=== PATIENT | female | born 1940 | race Caucasian/White ===

== ENCOUNTER 2016-09-07 05:56 | Inpatient (IN) | payer MEDICARE, BC ==
[2016-09-07 06:59] LABS: ALT 24 U/L (9-52); AST 22 U/L (14-36); Alkaline Phosphatase 70 U/L (38-126); Anion Gap 10 mmol/L; Blood Urea Nitrogen 13 mg/dL (7-17); Calcium 8.9 mg/dL (8.4-10.2); Carbon Dioxide 23 mmol/L (22-30); Chloride 106 mmol/L (98-107); Glucose 102 mg/dL (74-99); Non-African American GFR(MDRD) >60 (>60 ml/min/1.73 sqM); Sodium 139 mmol/L (137-145); Total Bilirubin 0.3 mg/dL (0.2-1.3); Total Protein 6.5 g/dL (6.3-8.2)
[2016-09-07 07:13] LABS: Anisocytosis Slight; Basophils # (A) 0.1 k/uL (0-0.2); Basophils % (A) 1 %; CH 24.6; CHCM 28.6; Eosinophils # (A) 0.2 k/uL (0-0.7); Eosinophils % (A) 2 %; HDW 4.74; Hypochromasia Marked; Luc % (Auto) 3; Lymphocytes # (A) 1.3 k/uL (1.0-4.8); Lymphocytes % (A) 19 %; MCH 24.9 pg (25.0-35.0); MCHC 28.7 g/dL (31.0-37.0); MCV 86.7 fL (80.0-100.0); Mean Platelet Volume 7.4; Monocytes # (A) 0.6 k/uL (0-1.0); Monocytes % (A) 8 %; Neutrophils # (A) 4.7 k/uL (1.3-7.7); Neutrophils % (A) 67 %; Poikilocytosis Marked; RBC 2.28 m/uL (3.80-5.40); RDW 18.7 % (11.5-15.5); WBC (Perox) 6.51
[2016-09-07 07:20] LABS: HCT 19.8 % (34.0-46.0); HGB 5.7 gm/dL (11.4-16.0)
[2016-09-07] MEDS ORDERED: SODIUM CHLORIDE 0.9% 1,000 ML IV ONE (08:41)
--- NOTE | 2016-09-07 08:44 | ED ---
General Adult HPI - General Chief complaint: Recheck/Abnormal Lab/Rx Stated complaint: Abnormal labs-Dr sent Time Seen by Provider: 09/07/16 07:36 Source: patient, RN notes reviewed, old records reviewed Mode of arrival: wheelchair Limitations: no limitations - History of Present Illness Initial comments: This is a 75-year-old female ER for evaluation. This patient presents for evaluation of weakness. Patient had outpatient lab work showing anemia, coming in for further evaluation. Patient states she has had anemia with transfusion in the past unknown what caused patient patient that she does take iron pills does have dark stools. No blood in her stool no nausea or vomiting. Patient denies any pain. She has been feeling weak lightheaded and dizzy for quite some time - Related Data Home Medications Medication Instructions Recorded Confirmed Ascorbic Acid [Vitamin C] 500 mg PO DAILY 12/21/15 09/07/16 Cholecalciferol [Vitamin D3] 5,000 unit PO DAILY 12/21/15 09/07/16 FLUoxetine HCL [PROzac] 20 mg PO DAILY 12/21/15 09/07/16 Ferrous Sulfate [Feosol] 325 mg PO DAILY 12/21/15 09/07/16 Fluticasone Nasal [place] [Flonase 1 spray EA NOSTRIL DAILY PRN 12/21/15 09/07/16 Nasal [place]] Isosorbide Mononitrate ER [Imdur] 60 mg PO DAILY 12/21/15 09/07/16 Multivitamins, Thera [Multivitamin] 1 tab PO DAILY 12/21/15 09/07/16 Omeprazole [PriLOSEC] 20 mg PO BID PRN 12/21/15 09/07/16 clonazePAM [Clonazepam] 2 mg PO TID PRN 12/21/15 09/07/16 Naproxen Sodium [Aleve] 220 mg PO BID PRN 12/22/15 09/07/16 Allergies Allergy/AdvReac Type Severity Reaction Status Date / Time iodine AdvReac Severe Nausea & Verified 09/07/16 07:49 Vomiting shrimp AdvReac Severe Nausea & Verified 09/07/16 07:49 Vomiting Penicillins AdvReac Unknown Uncontrollable Verified 09/07/16 07:49 Shaking Review of Systems ROS Statement: Those systems with pertinent positive or pertinent negative responses have been documented in the HPI. ROS Other: All systems not noted in ROS Statement are negative. Past Medical History Past Medical History: Cancer, GERD/Reflux, Osteoarthritis (OA), Skin Disorder Additional Past Medical History / Comment(s): HEART MURMUR, SINUS PROBLEMS- STATES EASILY CONGESTED, HIATAL HERNIA, HX OF SKIN CANCER, ANEMIA. TEETH IMPLANTS AUGUST-SEPTEMBER 2015 AND HAD CELLULITIS OF NECK AND CHIN-STATES INFECTION NOW IN THE BONE. History of Any Multi-Drug Resistant Organisms: None Reported Past Surgical History: Back Surgery, Tonsillectomy Past Anesthesia/Blood Transfusion Reactions: No Reported Reaction Additional Past Anesthesia/Blood Transfusion Reaction / Comment(s): HX OF BLOOD TRANSFUSIONS. Past Psychological History: Anxiety, Panic Disorder Smoking Status: Former smoker Past Alcohol Use History: None Reported Additional Past Alcohol Use History / Comment(s): QUIT SMOKING 40 YEARS AGO ( 1975). STARTED SMOKING AGE 24 (1963) Past Drug Use History: None Reported - Past Family History Mother Family Medical History: Deep Vein Thrombosis (DVT) Father Family Medical History: Cancer Additional Family Medical History / Comment(s): LUNG CANCER Brother(s) Family Medical History: Cancer Additional Family Medical History / Comment(s): LEUKEMIA General Exam Limitations: no limitations General appearance: alert, in no apparent distress Head exam: Present: atraumatic, normocephalic, normal inspection Eye exam: Present: normal appearance, PERRL, EOMI. Absent: scleral icterus, conjunctival injection, periorbital swelling ENT exam: Present: normal exam, mucous membranes moist Neck exam: Present: normal inspection. Absent: tenderness, meningismus, lymphadenopathy Respiratory exam: Present: normal lung sounds bilaterally. Absent: respiratory distress, wheezes, rales, rhonchi, stridor Cardiovascular Exam: Present: regular rate, normal rhythm, normal heart sounds. Absent: systolic murmur, diastolic murmur, rubs, gallop, clicks GI/Abdominal exam: Present: soft, normal bowel sounds. Absent: distended, tenderness, guarding, rebound, rigid Extremities exam: Present: normal inspection, full ROM, normal capillary refill. Absent: tenderness, pedal edema, joint swelling, calf tenderness Back exam: Present: normal inspection Neurological exam: Present: alert, oriented X3, CN II-XII intact Psychiatric exam: Present: normal affect, normal mood Skin exam: Present: warm, dry, intact, normal color. Absent: rash Course Vital Signs 09/07/16 09/07/16 06:01 07:27 Temperature 97.9 F 96.7 F L Pulse Rate 89 86 Respiratory 18 16 Rate Blood Pressure 129/52 155/70 O2 Sat by Pulse 99 98 Oximetry - Reevaluation(s) Reevaluation #1: 09/07/16 08:44 Patient states she does feel weak, dizzy, lightheaded EKG Findings - EKG Comments: EKG Findings:: EKG shows sinus rhythm rate of 88, MO 140, QRS 82, QTc 464 Medical Decision Making - Medical Decision Making 75 female ER for evaluation. The patient is a for evaluation of anemia. Anemia of chronic disease compounded by acute blood loss through GI bleed. Patient with dark stools, will admit for GI evaluation, transfusion and monitoring of hemoglobin - Lab Data Result diagrams: 09/07/16 06:30 09/07/16 06:30 Lab Results 09/07/16 09/07/16 09/07/16 Range/Units 06:30 06:30 06:30 WBC 7.0 (3.8-10.6) k/uL RBC 2.28 L (3.80-5.40) m/uL Hgb 5.7 L* (11.4-16.0) gm/dL Hct 19.8 L* (34.0-46.0) % MCV 86.7 (80.0-100.0) fL MCH 24.9 L (25.0-35.0) pg MCHC 28.7 L (31.0-37.0) g/dL RDW 18.7 H (11.5-15.5) % Plt Count 225 (150-450) k/uL Neutrophils % 67 % Lymphocytes % 19 % Monocytes % 8 % Eosinophils % 2 % Basophils % 1 % Neutrophils # 4.7 (1.3-7.7) k/uL Lymphocytes # 1.3 (1.0-4.8) k/uL Monocytes # 0.6 (0-1.0) k/uL Eosinophils # 0.2 (0-0.7) k/uL Basophils # 0.1 (0-0.2) k/uL Hypochromasia Marked Poikilocytosis Marked Anisocytosis Slight Sodium 139 (137-145) mmol/L Potassium 4.0 (3.5-5.1) mmol/L Chloride 106 (98-107) mmol/L Carbon Dioxide 23 (22-30) mmol/L Anion Gap 10 mmol/L BUN 13 (7-17) mg/dL Creatinine 0.71 (0.52-1.04) mg/dL Est GFR (MDRD) Af Amer >60 (>60 ml/min/1.73 sqM) Est GFR (MDRD) Non-Af >60 (>60 ml/min/1.73 sqM) Glucose 102 H (74-99) mg/dL Calcium 8.9 (8.4-10.2) mg/dL Total Bilirubin 0.3 (0.2-1.3) mg/dL AST 22 (14-36) U/L ALT 24 (9-52) U/L Alkaline Phosphatase 70 (38-126) U/L Total Protein 6.5 (6.3-8.2) g/dL Albumin 3.7 (3.5-5.0) g/dL Blood Type O Positive Blood Type Recheck No Antibody Screen NEGATIVE Spec Expiration Date 09/10/2016 - 233 Disposition Clinical Impression: Anemia, GI bleed Disposition: ADMITTED IP TO THIS [facility] Condition: Fair Referrals: Panfilo Vizcaino MD [Primary Care Provider] - 1-2 days
[2016-09-07 12:31] LABS: % Iron Saturation 3.2 % (20-50)
[2016-09-07] MEDS ORDERED: PEG 3350-NA SULF,BICARB,CL/KCL 4,000 ML BOTTLE PO ONE (15:00)
[2016-09-07] MEDS ORDERED: NON-FORMULARY DRUG (Omeprazole 20 MG) PO PRN (18:23)
[2016-09-07 19:28] LABS: Anisocytosis Slight; Basophils % (A) 1 %; CH 26.7; Eosinophils # (A) 0.2 k/uL (0-0.7); Eosinophils % (A) 3 %; HCT 26.9 % (34.0-46.0); HDW 5.26; Hypochromasia Marked; Luc # (Auto) 0.17; Luc % (Auto) 3; Lymphocytes % (A) 15 %; MCH 27.9 pg (25.0-35.0); MCHC 31.2 g/dL (31.0-37.0); MCV 89.6 fL (80.0-100.0); Mean Platelet Volume 7.7; Monocytes # (A) 0.6 k/uL (0-1.0); Monocytes % (A) 9 %; Neutrophils # (A) 4.6 k/uL (1.3-7.7); Neutrophils % (A) 71 %; Poikilocytosis Marked; RDW 17.5 % (11.5-15.5); WBC 6.4 k/uL (3.8-10.6); WBC (Perox) 6.84
--- NOTE | 2016-09-07 19:30 | HP ---
DATE OF ADMISSION: 09/07/2016 PRESENTING COMPLAINT: Weak and tired. HISTORY OF PRESENTING COMPLAINT: A very pleasant 75-year-old patient of Dr. Vizcaino, presented extremely weak, tired, and run down for days. Patient has a long-standing history of anemia, has had multiple EGDs colonoscopy in the past. All have been unremarkable. The patient's chronic stable medical conditions include GERD, osteoarthritis, hiatal hernia, anxiety. Patient does take iron and always gets dark stools. Admitted at this time with hemoglobin down to 5.7 and was ordered 2 units of blood. Denies any abdominal pain or weight loss. REVIEW OF SYSTEMS: CONSTITUTIONAL: Weak, tired. HEENT: None. RESPIRATORY: None. CARDIOVASCULAR: None. GASTROINTESTINAL: Heartburn. GENITOURINARY: None. MUSCULOSKELETAL: Pain in the joints. DERMATOLOGIC: None. HEMATOLOGIC: None. LYMPHATIC: None. PSYCHIATRY: None. NEUROLOGICAL: None. Past history of GERD, osteoarthritis, hiatal hernia, jaw osteomyelitis, anxiety. PAST SURGICAL HISTORY: Back surgery, tonsillectomy, bilateral cataract removal and skin cancer removed, back surgery x3. SOCIAL HISTORY: Patient smoked about 11 years; stopped in 1975, lives with his spouse. Family history of DVT, rheumatoid arthritis, lung cancer. HOME MEDICATIONS: 1. Clonazepam 2 mg p.o. t.i.d. p.r.n. 2. Prilosec 20 mg p.o. b.i.d. p.r.n. 3. Aleve 200 mg p.o. b.i.d. 4. Multivitamin 1 tablet p.o. daily. 5. Imdur ER 60 mg p.o. daily. 6. Nasal Flonase spray each nostril daily p.r.n. 7. Iron 325 mg p.o. daily. 8. Prozac 20 mg p.o. daily. 9. Vitamin D3 5000 units p.o. daily. 10. Vitamin C 500 mg p.o. daily. ALLERGIES: IODINE, SHRIMP, PENICILLIN. On examination, temperature 98.1, pulse 85, respirations 16, blood pressure 115/84, pulse ox 96% on room air. GENERAL APPEARANCE: Well built, BMI of 33. Lying in bed, tired-appearing. EYES: Pupils equal. Conjunctivae pale. HEENT: Oral cavity normal. NECK: JVD not raised. Mass not palpable. RESPIRATORY: Effort normal. Lungs are clear. CARDIOVASCULAR: First and second sounds normal. No edema. ABDOMEN: Soft, nontender. Liver and spleen not palpable. LYMPHATIC: No lymph nodes palpable in neck or axillae. PSYCHIATRY: Alert and oriented x3. Mood and affect normal. NEUROLOGICAL: Pupils equal. Cranial nerves grossly intact. Power and sensation grossly intact. INVESTIGATIONS: White count 7, hemoglobin 5.7, MCV is normal. There is some ( ) and polycytosis. BUN and creatinine are normal. Iron is low at 14. Ferritin is down to 12. ASSESSMENT: 1. Acute and chronic severe symptomatic normocytic anemia with iron deficiency picture in a patient who is having dark stools, but has been on iron, has had multiple colonoscopies and esophagogastroduodenoscopies in the past. 2. Gastroesophageal reflux disease. 3. Primary osteoarthritis in multiple joints, bilateral. 4. Obesity; body mass index of 33.8. 5. Hiatal hernia. PLAN: The patient was transfused 2 units of blood. GI was consulted. They are going proceed to EGD, colonoscopy tomorrow. Also get hematological consult for further workup, probably as an outpatient. Care was discussed with the patient. Questions were answered.
[2016-09-07 19:31] LABS: HGB 8.4 gm/dL (11.4-16.0)
[2016-09-07] MEDS: LACTATED RINGERS 1,000 ML IV SCH (21:34)
[2016-09-07] MEDS: PANTOPRAZOLE 40 MG/10 ML VIAL IVP SCH (21:35)
[2016-09-07] MEDS: FLUoxetine HCL 20 MG CAP PO SCH (21:35)
[2016-09-07] MEDS: ISOSORBIDE MONONITRATE ER 60 MG TAB.ER.24H PO SCH (21:35)
--- NOTE | 2016-09-08 07:39 | P.CONS ---
History of Present Illness - Reason for Consult Consult date: 09/08/16 anemia Requesting physician: Javier Harding - History of Present Illness 75-year-old female patient of Dr. Sabas Vizcaino with a long-standing history of anemia thought to be attributed to heavy menses in the past with multiple endoscopic evaluations; last endoscopic evaluation has been several years, hiatal hernia, anxiety, and obesity. Patient presents with generalized weakness , lightheadedness, dizziness. Admission hemoglobin 5.7. MCV 86. Platelet 225. BUN 13. Creatinine 0.7. Iron 14. TIBC 432. Iron saturation 3.2%. Ferritin 12. She received 2 units of blood hemoglobin 8.4. Reports dark colored stools but takes iron supplementation. Denies gross hematemesis or hematochezia. No weight loss or abdominal pain. Upon review of past medical records hemoglobin was in the 10 range December 2015. Denies excessive usage of NSAIDs, aspirin or other antiplatelet medications. No alcohol. Review of Systems Constitutional: Denies fever, chills, sweats, weight gain, or loss. HEENT: Negative for migraines, blurred vision or loss, earaches, drainage, tinnitus, oral mucosal lesions, dysphagia, or odynophagia. CARDIAC: Negative for chest pain, arrhythmias, or palpitation. RESPIRATORY: Negative for shortness of breath, hemoptysis, cough, or sputum production. GI: See HPI for pertinent findings. : Negative for hematuria, urgency, frequency, polyuria, or dysuria. GYNc: Negative vaginal discharge. MUSCULOSKELETAL: Negative for muscle aches, swelling, arthritis, and arthralgias. NEUROLOGIC: Negative for stroke or TIA. ENDOCRINE: Negative for thyroid problems. SKIN: Negative for rash or itching. PSYCHIATRIC: History of anxiety All systems: negative (See HPI) Past Medical History Past Medical History: Cancer, GERD/Reflux, GI Bleed, Osteoarthritis (OA), Skin Disorder Additional Past Medical History / Comment(s): ANEMIA-CAUSE UNKNOWN PER PT, HEART MURMUR, SINUS PROBLEMS-STATES EASILY CONGESTED, HIATAL HERNIA, SKIN CANCER , TEETH IMPLANTS AUGUST-SEPTEMBER 2015 AND HAD CELLULITIS OF NECK AND CHIN-OSTEOMYLITIS , BALANCE PROBLEMS, RECENT CONSTIPATION AND PT STATES HAS HAD ALITTLE BLOOD IN STOOL. History of Any Multi-Drug Resistant Organisms: None Reported Past Surgical History: Back Surgery, Tonsillectomy Additional Past Surgical History / Comment(s): EGDS/COLONOSCOPIES, BILATERAL CATARACT REMOVAL WITH LENS, SKIN CANCER REMOVAL, BACK SURGERY X3, 12/22/15 PICC LINE SINCE REMOVED. Past Anesthesia/Blood Transfusion Reactions: No Reported Reaction Additional Past Anesthesia/Blood Transfusion Reaction / Comm: HX OF BLOOD TRANSFUSIONS. Past Psychological History: Anxiety, Panic Disorder Additional Psychological History / Comment(s): PT RESIDES WITH HER SPOUSE, THEIR SON AND HIS 3 TEENAGE CHILDREN. SHE LATELY HAS BEEN USING A WALKER. SHE DRIVES. Smoking Status: Former smoker Past Alcohol Use History: None Reported Additional Past Alcohol Use History / Comment(s): QUIT SMOKING 40 YEARS AGO ( 1975). STARTED SMOKING AGE 24 (1963) Past Drug Use History: None Reported - Past Family History Mother Family Medical History: Deep Vein Thrombosis (DVT), Rheumatoid Arthritis (RA) Father Family Medical History: Cancer Additional Family Medical History / Comment(s): LUNG CANCER Brother(s) Family Medical History: Cancer Additional Family Medical History / Comment(s): LEUKEMIA Medications and Allergies Home Medications Medication Instructions Recorded Confirmed Type Ascorbic Acid [Vitamin C] 500 mg PO DAILY 12/21/15 09/07/16 History Cholecalciferol [Vitamin D3] 5,000 unit PO DAILY 12/21/15 09/07/16 History FLUoxetine HCL [PROzac] 20 mg PO DAILY 12/21/15 09/07/16 History Ferrous Sulfate [Feosol] 325 mg PO DAILY 12/21/15 09/07/16 History Fluticasone Nasal [place] [Flonase 1 spray EA NOSTRIL DAILY PRN 12/21/15 09/07/16 History Nasal [place]] Isosorbide Mononitrate ER [Imdur] 60 mg PO DAILY 12/21/15 09/07/16 History Multivitamins, Thera [Multivitamin] 1 tab PO DAILY 12/21/15 09/07/16 History Omeprazole [PriLOSEC] 20 mg PO BID PRN 12/21/15 09/07/16 History clonazePAM [Clonazepam] 2 mg PO TID PRN 12/21/15 09/07/16 History Naproxen Sodium [Aleve] 220 mg PO BID PRN 12/22/15 09/07/16 History Allergies Allergy/AdvReac Type Severity Reaction Status Date / Time iodine AdvReac Severe Nausea & Verified 09/07/16 07:49 Vomiting shrimp AdvReac Severe Nausea & Verified 09/07/16 07:49 Vomiting Penicillins AdvReac Unknown Uncontrollable Verified 09/07/16 07:49 Shaking Physical Exam Vitals: Vital Signs Temp Pulse Pulse Resp BP BP Pulse Ox 09/07/16 23:00 98.2 F 92 19 127/54 94 L 09/07/16 20:27 89 152/76 95 09/07/16 16:00 16 09/07/16 15:35 98.1 F 85 16 158/84 09/07/16 15:00 98.8 F 82 16 163/85 96 09/07/16 12:56 97.9 F 82 18 134/67 09/07/16 12:26 97.9 F 90 16 158/88 09/07/16 12:16 98.1 F 95 16 164/89 09/07/16 12:03 96.8 F L 83 16 134/65 09/07/16 11:18 96.2 F L 84 16 98/54 99 09/07/16 10:28 96.7 F L 80 16 153/67 96 09/07/16 09:50 96.7 F L 80 16 153/67 96 09/07/16 09:20 97.8 F 79 17 159/70 98 09/07/16 09:10 97.7 F 82 18 137/62 98 09/07/16 08:47 87 18 146/63 98 Intake and Output 09/07/16 09/08/16 09/08/16 22:59 06:59 14:59 Intake Total 310 Balance 310 Intake: Blood Product 310 Rc As-1 Unit 310 [id number] Other: # Voids 2 1 General appearance: The patient is alert, oriented, in no acute distress. HET: Head is normocephalic and atraumatic. Pupils are equal and reactive. Oropharynx is clear without lesions. Neck: Supple without lymphadenopathy. Trachea midline. Heart: S1 S2. Regular rate and rhythm. Lungs: No crackles or wheezes are heard. Abdomen: Soft, nontender, nondistended with bowel sounds. No peritoneal signs. No palpable organomegaly or masses. Extremities: Normal skin color and turgor. No cyanosis, rash, ulceration, clubbing, or edema. Radial and pedal pulses are 2/4 bilaterally. Neurological: No focal deficits. Strength and sensation are grossly intact. Results CBC & Chem 7: 09/08/16 07:55 09/07/16 06:30 Labs: Abnormal Lab Results - Last 24 Hours (Table) 09/07/16 09/07/16 09/07/16 Range/Units 06:30 06:30 18:42 RBC 3.00 L (3.80-5.40) m/uL Hgb 8.4 L D (11.4-16.0) gm/dL Hct 26.9 L (34.0-46.0) % RDW 17.5 H (11.5-15.5) % Iron 14 L (37-170) ug/dL % Saturation 3.2 L (20-50) % Crossmatch See Detail Assessment and Plan (1) Symptomatic anemia Narrative/Plan: Possible GI bleed possible component of acute blood loss. History of long- standing anemia. Status: Acute (2) Iron deficiency anemia Status: Acute Plan: 1. EGD colonoscopy evaluation. 2. Hematology consultation. 3. No aspirin and NSAIDs. GI prophylaxis Protonix 40 mg twice daily. 4. Hemoccult stool testing requested. The armature coil winder has discussed the risks, benefits and alternative therapies for the above-mentioned procedure and for both sedation/analgesia as well as necessary blood product administration, if indicated, as they pertain to this patient. The patient has indicated understanding and acceptance of the risks and procedures discussed. Thank you for this kind referral and the opportunity to participate in the care of your patient. This consultation was discussed with Dr. Steel. The impression and plan of care have been directed as dictated.
[2016-09-08 08:21] LABS: Anisocytosis Slight; Basophils % (A) 0 %; CH 26.6; CHCM 30.5; Eosinophils # (A) 0.1 k/uL (0-0.7); Eosinophils % (A) 2 %; HCT 24.8 % (34.0-46.0); HDW 5.52; HGB 7.7 gm/dL (11.4-16.0); Hypochromasia Marked; Luc # (Auto) 0.14; Luc % (Auto) 2; Lymphocytes # (A) 0.8 k/uL (1.0-4.8); Lymphocytes % (A) 13 %; MCH 27.1 pg (25.0-35.0); MCHC 30.9 g/dL (31.0-37.0); MCV 87.9 fL (80.0-100.0); Mean Platelet Volume 7.5; Monocytes # (A) 0.6 k/uL (0-1.0); Monocytes % (A) 8 %; Neutrophils # (A) 4.9 k/uL (1.3-7.7); Neutrophils % (A) 75 %; Poikilocytosis Marked; RBC 2.82 m/uL (3.80-5.40); RDW 16.9 % (11.5-15.5); WBC 6.6 k/uL (3.8-10.6); WBC (Perox) 6.18
[2016-09-08] MEDS ORDERED: ACETAMINOPHEN TAB 325 MG TAB ONE (08:27)
[2016-09-08] MEDS: ISOSORBIDE MONONITRATE ER 60 MG TAB.ER.24H PO SCH (08:28)
[2016-09-08] MEDS: PANTOPRAZOLE 40 MG/10 ML VIAL IVP SCH ×2 (08:28→21:21)
[2016-09-08] MEDS: ACETAMINOPHEN TAB 325 MG TAB PO PRN (08:28)
[2016-09-08] MEDS: clonazePAM 1 MG TAB PO PRN (08:28)
[2016-09-08] MEDS: FLUoxetine HCL 20 MG CAP PO SCH (08:28)
--- NOTE | 2016-09-08 15:17 | P.CONS ---
History of Present Illness - Reason for Consult Consult date: 09/08/16 anemia Requesting physician: Javier Harding - Chief Complaint abnormal lab on routine blood work - History of Present Illness Ms. Manriquez is a pleasant female pt of Dr. Morrell who states she was contacted at home and instructed to come to the hospital for severe anemia, Hgb was 5.7 on admit, she has had 2 units of PRBCs with an appropriate increase in Hgb. Pt states taking oral iron, 1 tab daily, denies bleeding, she states frequent colonoscopies but was not able to say why she and her had them so frequently-annually for quite some time then every 3 years-she could not say when her last one was but it was prior to moving to this area, it is unclear how ling she has been in the area just that she is staying with her son in [place]. She denies any overt bleeding. Review of Systems All systems: negative Constitutional: Reports as per HPI Past Medical History Past Medical History: Cancer, GERD/Reflux, GI Bleed, Osteoarthritis (OA), Skin Disorder Additional Past Medical History / Comment(s): ANEMIA-CAUSE UNKNOWN PER PT, HEART MURMUR, SINUS PROBLEMS-STATES EASILY CONGESTED, HIATAL HERNIA, SKIN CANCER , TEETH IMPLANTS AUGUST-SEPTEMBER 2015 AND HAD CELLULITIS OF NECK AND CHIN-OSTEOMYLITIS , BALANCE PROBLEMS, RECENT CONSTIPATION AND PT STATES HAS HAD ALITTLE BLOOD IN STOOL. History of Any Multi-Drug Resistant Organisms: None Reported Past Surgical History: Back Surgery, Tonsillectomy Additional Past Surgical History / Comment(s): EGDS/COLONOSCOPIES, BILATERAL CATARACT REMOVAL WITH LENS, SKIN CANCER REMOVAL, BACK SURGERY X3, 12/22/15 PICC LINE SINCE REMOVED. Past Anesthesia/Blood Transfusion Reactions: No Reported Reaction Additional Past Anesthesia/Blood Transfusion Reaction / Comm: HX OF BLOOD TRANSFUSIONS. Past Psychological History: Anxiety, Panic Disorder Additional Psychological History / Comment(s): PT RESIDES WITH HER SPOUSE, THEIR SON AND HIS 3 TEENAGE CHILDREN. SHE LATELY HAS BEEN USING A WALKER. SHE DRIVES. Smoking Status: Former smoker Past Alcohol Use History: None Reported Additional Past Alcohol Use History / Comment(s): QUIT SMOKING 40 YEARS AGO ( 1975). STARTED SMOKING AGE 24 (1963) Past Drug Use History: None Reported - Past Family History Mother Family Medical History: Deep Vein Thrombosis (DVT), Rheumatoid Arthritis (RA) Father Family Medical History: Cancer Additional Family Medical History / Comment(s): LUNG CANCER Brother(s) Family Medical History: Cancer Additional Family Medical History / Comment(s): LEUKEMIA Medications and Allergies Home Medications Medication Instructions Recorded Confirmed Type Ascorbic Acid [Vitamin C] 500 mg PO DAILY 12/21/15 09/07/16 History Cholecalciferol [Vitamin D3] 5,000 unit PO DAILY 12/21/15 09/07/16 History FLUoxetine HCL [PROzac] 20 mg PO DAILY 12/21/15 09/07/16 History Ferrous Sulfate [Feosol] 325 mg PO DAILY 12/21/15 09/07/16 History Fluticasone Nasal [place] [Flonase 1 spray EA NOSTRIL DAILY PRN 12/21/15 09/07/16 History Nasal [place]] Isosorbide Mononitrate ER [Imdur] 60 mg PO DAILY 12/21/15 09/07/16 History Multivitamins, Thera [Multivitamin] 1 tab PO DAILY 12/21/15 09/07/16 History Omeprazole [PriLOSEC] 20 mg PO BID PRN 12/21/15 09/07/16 History clonazePAM [Clonazepam] 2 mg PO TID PRN 12/21/15 09/07/16 History Naproxen Sodium [Aleve] 220 mg PO BID PRN 12/22/15 09/07/16 History Allergies Allergy/AdvReac Type Severity Reaction Status Date / Time iodine AdvReac Severe Nausea & Verified 09/07/16 07:49 Vomiting shrimp AdvReac Severe Nausea & Verified 09/07/16 07:49 Vomiting Penicillins AdvReac Unknown Uncontrollable Verified 09/07/16 07:49 Shaking Physical Exam Vitals: Vital Signs Temp Pulse Pulse Resp BP BP Pulse Ox 09/08/16 07:00 98.8 F 87 20 150/79 94 L 09/07/16 23:00 98.2 F 92 19 127/54 94 L 09/07/16 20:27 89 152/76 95 09/07/16 16:00 16 09/07/16 15:35 98.1 F 85 16 158/84 Intake and Output 09/08/16 09/08/16 09/08/16 06:59 14:59 22:59 Other: # Voids 1 2 - Constitutional General appearance: cooperative, morbidly obese, no acute distress - EENT Eyes: anicteric sclerae, EOMI, PERRLA, normal appearance ENT: hearing grossly normal, normal oropharynx - Neck Neck: no lymphadenopathy - Respiratory Respiratory: bilateral: CTA - Cardiovascular Rhythm: regular Heart sounds: normal: S1, S2 leg Peripheral Edema: bilateral: None - Gastrointestinal General gastrointestinal: no absent bowel sounds, no decreased bowel sounds, no distended, no hepatomegaly, no hyperactive bowel sounds, normal bowel sounds, no organomegaly, no rigid, no scaphoid, soft, no splenomegaly, no tenderness, no umbilical hernia, no ventral hernia - Integumentary Integumentary: normal turgor, pale - Neurologic Neurologic: CNII-XII intact - Musculoskeletal Musculoskeletal: strength equal bilaterally - Psychiatric Psychiatric: A&O x's 3, appropriate affect, intact judgment & insight Results CBC & Chem 7: 09/08/16 07:55 09/07/16 06:30 Labs: Abnormal Lab Results - Last 24 Hours (Table) 09/07/16 09/07/16 09/08/16 Range/Units 06:30 18:42 07:55 RBC 3.00 L 2.82 L (3.80-5.40) m/uL Hgb 8.4 L D 7.7 L (11.4-16.0) gm/dL Hct 26.9 L 24.8 L (34.0-46.0) % MCHC 30.9 L (31.0-37.0) g/dL RDW 17.5 H 16.9 H (11.5-15.5) % Lymphocytes # 0.8 L (1.0-4.8) k/uL Crossmatch See Detail Assessment and Plan (1) Iron deficiency anemia Narrative/Plan: Pt is noted to be anemic from hospital records since at least Dec 2015. Iron studies indicate iron deficiency. Parenteral iron will be given as pt states taking oral iron daily, not effective at this time. Pt is having upper and lower endo tomorrow, CT of abd and pelvis will be ordered later if no findings for underlying cause identified on endoscopy. Status: Chronic
[2016-09-08] MEDS ORDERED: IV FLUID CONTINUATION 1,000 ML IV ONE (15:24)
[2016-09-08] MEDS ORDERED: PROPOFOL 10 MG/ML 20 ML VIAL IV ONE (15:24)
--- NOTE | 2016-09-08 16:32 | P.PCN ---
Date of Procedure: 09/08/16 (Procedure: Esophagogastroduodenoscopy and biopsy. Total colonoscopy.) Preoperative Diagnosis: Postoperative Diagnosis: Procedure(s) Performed: Procedure: 1. Esophagogastroduodenoscopy and biopsy. 2. Total colonoscopy. Preoperative diagnosis: Anemia. Postoperative diagnosis: 1. Hiatal hernia and distal esophagitis. 2. Mild gastritis. 3. Diverticulosis. Preparation: GoLYTELY prep. Sedation: Was provided by anesthesia. Brief clinical history: The patient is a 75-year-old female with a long- standing history of anemia thought to be attributed to heavy menses in the past with multiple endoscopic evaluations; last endoscopic evaluation has been several years, hiatal hernia, anxiety, and obesity. Patient presented with generalized weakness, lightheadedness, dizziness. Admission hemoglobin 5.7. MCV 86. Platelet 225. Hb in December 2015 was around 10. Iron 14. TIBC 432. Iron saturation 3.2%. Ferritin 12. She received 2 units of blood. Hemoglobin increased to 8.4. Reports dark colored stools but takes iron supplementation. Denies gross hematemesis or hematochezia. No weight loss or abdominal pain. Denies excessive usage of NSAIDs, aspirin or other antiplatelet medications. No alcohol. The details are summarized in the history and physical and dictated consultations and progress notes. This evaluation is to assess for a possible source of bleeding. Procedure: With the patient on her left lateral decubitus position and after informed consent and adequate sedation, I passed the Olympus-GIF 160 video upper endoscope through the cricopharyngeus down the esophagus. GE junction was around 32-33 cm from the incisors and there was a sliding hiatal hernia. The distal esophagus showed a broad ulceration limited to the level of the GE junction but there was no bleeding. No strictures or Gill's esophagus. The endoscope was then passed into the stomach which was insufflated with air and inspected in detail including the retroflex view in the cardia. There was some mottling and erythema in the antrum but no ulcers or erosions. Pyloric channel , duodenal bulb, post bulbar area and descending duodenum appeared within normal limits. I obtained biopsies from the duodenum, antrum and distal esophagus then the endoscope was withdrawn and I proceeded with the colonoscopy. Perianal area did not show any fissures or fistulas. There were no masses felt on digital rectal examination. The Olympus CFQ 160L video colonoscope was then inserted in the rectum in the usual fashion, however because of significant diverticular disease in the sigmoid and dysfunction of the endoscope I was not able to advance the endoscope safely which prompted as to withdraw the endoscope and start the exam all over again using the pediatric PCF Q180 AL which was advanced to the cecum. There was diffuse diverticulosis with no evidence of acute diverticulitis or strictures. No polyps or tumors were seen or any angiodysplasia or bleeding. No biopsies were obtained. I retroflexed endoscope in the rectum before the endoscope was withdrawn. No active bleeding was noted during the upper or lower endoscopy. The patient tolerated the procedure well. Plan: I shared the findings with the patient. Will await biopsy results and make further recommendations. Implants: Indications for Procedure: Operative Findings: Description of Procedure:
[2016-09-08] MEDS: SODIUM FERRIC GLUCONAT-SUCROSE 125 MG in SODIUM CHLORIDE 0.9% 100 ML IVPB SCH (16:33)
--- NOTE | 2016-09-08 20:39 | PN ---
DATE OF SERVICE: 09/08/2016 PRESENTING COMPLAINT: Weak and tired, anemia. This is a 75-year-old female who presented to the emergency department on 09/07/2016 with feeling of being weak and tired. Patient has a known history of anemia. Hemoglobin was found to be 5.7 and patient received 2 units of blood and was admitted. Today patient denies any abdominal pain, any shortness of breath any dizziness, lightheadedness, palpitations. Patient is sitting up in bed; awake, alert, eating her breakfast. No difficulties noted or voiced. Review of systems done for constitutional, cardiovascular, pulmonary with relevant findings as above. CURRENT MEDICATIONS: 1. Klonopin. 2. Prozac. 3. Imdur. 4. Protonix. PHYSICAL EXAMINATION: VITAL SIGNS: Temperature 98.7, pulse 91, respiratory rate 16, blood pressure 133/62, oxygen saturation 95% on room air. GENERAL APPEARANCE: Patient is awake, sitting up, looking comfortable, still remains pale in color; however, patient states she feels better than she did when she was admitted. EYES: Pupils equal. Conjunctivae normal. NECK: JVD not raised. Mass not palpable. LUNGS: Bilateral breath sounds clear to auscultation. RESPIRATORY: Effort normal, unlabored. CARDIOVASCULAR: First and second sounds noted. No edema. ABDOMEN: Soft, nontender. Liver and spleen not palpable. PSYCHIATRY: Alert and oriented x3. Mood and affect are normal. INVESTIGATIONS: White blood cell count 6.6, hemoglobin 7.7, platelet count 189. Hematology and GI on consultation. ASSESSMENT: 1. Acute and chronic severe symptomatic normocytic anemia with iron deficiency picture in a patient who is having dark stools, but has been on iron, has had multiple colonoscopies and esophagogastroduodenoscopies in the past. 2. Gastroesophageal reflux disease. 3. Primary osteoarthritis of multiple joints, bilateral. 4. Obesity; body mass index of 33.8. 5. Hiatal hernia. PLAN: Patient is scheduled for EGD/colonoscopy today. Will await the results of this test. Hematology/Oncology is following the patient's iron deficiencies and recommends iron supplementation and if EGD is negative, then a CT of the abdomen and pelvis will be ordered later. Will continue to follow hemoglobin with daily labs and close monitoring of the patient. Plan of care was discussed with the patient. Will continue to monitor. Patient was seen and examined by Nurse Practitioner Rosalba Mares and all the elements of case discussed with attending, Dr. Harding. I performed a history and physical examination of this patient and discussed the same with the dictator. I agree with the dictator's note. Any additional findings/opinions, etc. will be noted.
[2016-09-08] MEDS: LACTATED RINGERS 1,000 ML IV SCH (22:13)
[2016-09-09] MEDS: ACETAMINOPHEN TAB 325 MG TAB PO PRN (01:13)
[2016-09-09] MEDS: ISOSORBIDE MONONITRATE ER 60 MG TAB.ER.24H PO SCH (08:13)
[2016-09-09] MEDS: PANTOPRAZOLE 40 MG/10 ML VIAL IVP SCH (08:13)
[2016-09-09] MEDS: FLUoxetine HCL 20 MG CAP PO SCH (08:13)
[2016-09-09] MEDS: clonazePAM 1 MG TAB PO PRN ×2 (08:19→19:42)
[2016-09-09] MEDS ORDERED: RX INFO: IV CONTRAST WAS GIVEN 1 EACH MISC MISCELLANE PRN (08:51)
[2016-09-09] MEDS ORDERED: FAMOTIDINE 20 MG/2 ML VIAL IV ONE (08:53)
[2016-09-09] MEDS ORDERED: diphenhydrAMINE 50 MG/ML 1 ML VIAL IVP ONE (08:53)
[2016-09-09] MEDS: methylPREDNISolone SOD SUCCI 125 MG/2 ML VIAL IV ONE ×3 (10:08→11:43)
[2016-09-09 11:40] LABS: Anisocytosis Slight; Basophils % (A) 0 %; CHCM 29.1; Eosinophils # (A) 0.2 k/uL (0-0.7); Eosinophils % (A) 2 %; HCT 25.8 % (34.0-46.0); HDW 5.04; HGB 7.7 gm/dL (11.4-16.0); Hypochromasia Marked; Luc # (Auto) 0.16; Luc % (Auto) 2; Lymphocytes # (A) 0.8 k/uL (1.0-4.8); Lymphocytes % (A) 12 %; MCH 26.8 pg (25.0-35.0); MCHC 29.9 g/dL (31.0-37.0); MCV 89.8 fL (80.0-100.0); Mean Platelet Volume 8.5; Monocytes # (A) 0.5 k/uL (0-1.0); Monocytes % (A) 7 %; Neutrophils # (A) 5.3 k/uL (1.3-7.7); Neutrophils % (A) 77 %; Poikilocytosis Marked; RBC 2.87 m/uL (3.80-5.40); RDW 16.9 % (11.5-15.5); WBC 6.9 k/uL (3.8-10.6); WBC (Perox) 7.23
[2016-09-09] MEDS: BARIUM SULFATE 450 ML ORAL.SUSP BOTTLE PO PRN ×2 (11:52→15:10)
[2016-09-09 11:57] LABS: ALT 23 U/L (9-52); AST 20 U/L (14-36); Alkaline Phosphatase 64 U/L (38-126); Anion Gap 9 mmol/L; Blood Urea Nitrogen 8 mg/dL (7-17); Calcium 8.5 mg/dL (8.4-10.2); Carbon Dioxide 25 mmol/L (22-30); Chloride 106 mmol/L (98-107); Glucose 125 mg/dL (74-99); Non-African American GFR(MDRD) >60 (>60 ml/min/1.73 sqM); Potassium 3.8 mmol/L (3.5-5.1); Sodium 140 mmol/L (137-145); Total Bilirubin 0.5 mg/dL (0.2-1.3); Total Protein 5.9 g/dL (6.3-8.2)
[2016-09-09 12:04] VITALS: BMI 33.7
--- NOTE | 2016-09-09 12:58 | P.PN ---
Subjective Principal diagnosis: Anemia Status post EGD colonoscopy for evaluation of anemia with findings of hiatal hernia and distal esophagitis mild gastritis diverticulosis. CT abdomen and pelvis ordered today by hematology. No active bleeding. Feels well. Hemoglobin 7.7. Objective - Vital Signs Vital signs: Vital Signs Temp 97.5 F L 09/09/16 07:00 Pulse 81 09/09/16 07:00 Resp 18 09/09/16 07:00 BP 164/72 09/09/16 07:00 Pulse Ox 92 L 09/09/16 07:00 Intake & Output 09/08/16 09/09/16 09/09/16 18:59 06:59 18:59 Intake Total 250 240 Balance 250 240 Weight 89.358 kg Intake: IV 250 Oral 240 Other: # Voids 2 1 - Exam General appearance: The patient is alert, oriented, in no acute distress. HET: Head is normocephalic and atraumatic. Pupils are equal and reactive. Oropharynx is clear without lesions. Neck: Supple without lymphadenopathy. Trachea midline. Heart: S1 S2. Regular rate and rhythm. Lungs: No crackles or wheezes are heard. Abdomen: Soft, nontender, nondistended with bowel sounds. No peritoneal signs. No palpable organomegaly or masses. Extremities: Normal skin color and turgor. No cyanosis, rash, ulceration, clubbing, or edema. Radial and pedal pulses are 2/4 bilaterally. Neurological: No focal deficits. Strength and sensation are grossly intact. - Labs CBC & Chem 7: 09/09/16 10:52 09/09/16 10:52 Labs: Abnormal Lab Results - Last 24 Hours (Table) 09/08/16 09/08/16 09/09/16 Range/Units 07:55 07:55 10:52 RBC 2.87 L (3.80-5.40) m/uL Hgb 7.7 L (11.4-16.0) gm/dL Hct 25.8 L (34.0-46.0) % MCHC 29.9 L (31.0-37.0) g/dL RDW 16.9 H (11.5-15.5) % Lymphocytes # 0.8 L (1.0-4.8) k/uL Retic Count 6.0 H (0.5-2.0) % Glucose (74-99) mg/dL Total Protein (6.3-8.2) g/dL Albumin (3.5-5.0) g/dL RBC Folate 1,607 H (280 - 791) ng/mL 09/09/16 Range/Units 10:52 RBC (3.80-5.40) m/uL Hgb (11.4-16.0) gm/dL Hct (34.0-46.0) % MCHC (31.0-37.0) g/dL RDW (11.5-15.5) % Lymphocytes # (1.0-4.8) k/uL Retic Count (0.5-2.0) % Glucose 125 H (74-99) mg/dL Total Protein 5.9 L (6.3-8.2) g/dL Albumin 3.3 L (3.5-5.0) g/dL RBC Folate (280 - 791) ng/mL Assessment and Plan (1) Symptomatic anemia Narrative/Plan: Status post EGD colonoscopy with findings of gastritis and diverticulosis no active bleeding. Status: Acute (2) Iron deficiency anemia Status: Chronic Plan: 1. Continue supportive measures. Await biopsies. CT scan abdomen and pelvis pending. 2. Hematology following. Parenteral Iron supplementation. Assessment and plan of care discussed with Dr. Steel.
--- NOTE | 2016-09-09 13:14 | XR ---
EXAMINATION TYPE: XR chest 2V DATE OF EXAM: 09/09/2016 12:54 PM COMPARISON: NONE INDICATION: Short of breath TECHNIQUE: Single frontal view of the chest is obtained. FINDINGS: The heart size is normal. The pulmonary vasculature is normal. A right lower lobe infiltrate appears to be present. Correlate for pneumonia. This is better visualiz ed in lateral projection. Minimal effusion is not excluded posteriorly. IMPRESSION: 1. Right lower lobe infiltrate. Correlate for pneumonia. 2. Minimal posterior pleural effusion. 3. Follow-up exams recommended.
[2016-09-09] MEDS: SODIUM FERRIC GLUCONAT-SUCROSE 125 MG in SODIUM CHLORIDE 0.9% 100 ML IVPB SCH (15:18)
--- NOTE | 2016-09-09 17:00 | CT ---
EXAMINATION TYPE: CT abdomen pelvis wo con DATE OF EXAM: 09/09/2016 4:25 PM COMPARISON: NONE HISTORY: 75-year-old female unexplained iron deficiency, evaluate for abdominal mass CT DLP: 1019 mGycm. Automated exposure control for dose reduction was used. TECHNIQUE: Contiguous axial scanning of the abdomen and pelvis without IV contrast. Coronal and sagit jacoby reconstructions performed. FINDINGS: The heart is normal size with a small pericardial effusion. Mitral annular calcifications are noted. There are small bilateral pleural effusions. Large hiatal hernia. Masslike area of fold thickening, axial image 5 suspected to relate to wall redu ndancy due to crowding. Adjacent atelectasis at the lung bases. Noncontrast appearance of the liver, gallbladder, adrenal glands, kidneys, spleen with hilar splenule , and pancreas show no gross abnormality. [id number] atherosclerotic calcifications within the abdominal aorta and iliac arteries. There are scattered nonenlarged and borderline sized mesenteric lymph nodes measuring up to 6 mm. No retroperitoneal lymphadenopathy. Small fatty umbilical hernia. Normal appendix. Scattered colonic diverticulosis without acute diverticulitis. No pericolonic inflammatory change. Bladder is urine distended. Uterus and ovaries are visualized. Pelvic phleboliths. There is bulging c onvexity of the levator ani musculature. Bones: Degenerative disc disease throughout. No osseous destructive process. IMPRESSION: 1. Colonic diverticulosis. No evidence for acute diverticulitis. 2. Large hiatal hernia. Masslike area of thickening likely relates to gastric wall redundancy due to crowding. Direct visualization if indicated. 3. Small bilateral pleural effusions with adjacent atelectasis. Also, small pericardial effusion. Cor relate with patient's fluid status.
[2016-09-09] MEDS: LACTATED RINGERS 1,000 ML IV SCH (19:43)
--- NOTE | 2016-09-09 21:27 | PN ---
DATE OF SERVICE: 09/08/2016 ATTENDING NOTE: This patient was seen and examined by me on 09/08/16. Patient is awaiting EGD, colonoscopy today. Patient is somewhat anxious. She did receive 2 units of blood earlier. Stable. On examination, lungs are clear. CARDIOVASCULAR: First and second sounds normal. Hemoglobin is 7.7. ASSESSMENT: 1. Acute on chronic severe symptomatic anemia, status post blood transfusion. Awaiting endoscopic workup. 2. Iron deficiency anemia. Workup in place per Hematology. Will follow.
[2016-09-09] MEDS: FAMOTIDINE 20 MG TAB PO SCH (21:35)
--- NOTE | 2016-09-09 22:05 | PN ---
DATE OF SERVICE: 09/09/2016 PRESENTING COMPLAINT: Weak and tired, anemia. INTERVAL HISTORY: This is a female who presented to the emergency department with feelings of being weak and tired and known history of anemia. Today patient is awake and alert, remains pale-appearing. Patient states she ate her breakfast. No complaints of nausea or vomiting. Review of systems done for constitutional, cardiovascular, pulmonary, with relevant findings above. CURRENT MEDICATIONS: 1. Klonopin. 2. Prozac. 3. Imdur. 4. Protonix. PHYSICAL EXAMINATION: VITAL SIGNS: Temperature 97.5, pulse 81, respiratory rate 18, blood pressure 164/72, oxygen saturation 92% on room air. GENERAL APPEARANCE: Patient is sitting up in bed, awake, alert. Looks pale. Patient appears tired as well. States she feels just fine. EYES: Pupils equal. Conjunctivae normal. NECK: JVD not raised. Mass not palpable. LUNGS: Diminished bilaterally. RESPIRATORY: Effort normal, unlabored. CARDIOVASCULAR: First and second sounds noted. No edema. ABDOMEN: Soft, nontender. Liver and spleen not palpable. PSYCHIATRY: Alert and oriented x3. Mood and affect normal. INVESTIGATIONS: White blood cell count 6.9, hemoglobin 7.7, platelet count 195. Sodium 140, potassium 3.8. BUN 8, creatinine 0.69. ASSESSMENT: 1. Acute and chronic severe symptomatic normocytic anemia with iron deficiency picture in a patient who is having dark stools but has been on iron, has had multiple colonoscopies and esophagogastroduodenoscopies in the past, improving. 2. Gastroesophageal reflux disease. 3. Primary osteoarthritis of multiple joints bilaterally. 4. Obesity; body mass index of 33.8. 5. Hiatal hernia. PLAN: Results of EGD showed a hiatal hernia, distal esophagitis, mild gastritis, diverticulosis. Biopsies are pending. Hematology continues to follow and has ordered a CT scan of the abdomen and pelvis. Awaiting results. Additionally, Hematology will include parenteral iron supplementation. Awaiting results of CT scan. Will continue to follow daily labs and current medication and treatment plan. Plan of care discussed with the patient and family at the bedside. Patient was seen and examined by nurse practitioner Rosalba Mares, and all the elements of the case were discussed with attending, Dr. Harding.
--- NOTE | 2016-09-09 22:33 | PN ---
DATE OF SERVICE: 09/09/2016 ATTENDING NOTE: This patient was seen and examined by me earlier today. I reviewed the note by my nurse practitioner, Ms. Mares. I agree with the same and discussed with her. This patient was admitted with a hemoglobin of 5.7, transfused 2 units of blood. She did undergo EGD today that showed some esophagitis and some gastritis. Colonoscopy showed diverticulosis. Patient's is at the bedside. Overall patient is feeling better, less anxious. On examination, pulse 90, respiration 18, blood pressure 150/72. Lungs are clear. CARDIOVASCULAR: First and second sounds normal. INVESTIGATIONS: Hemoglobin is 7.7. ASSESSMENT: 1. Acute on chronic symptomatic anemia, status post blood transfusion; could be from gastrointestinal bleed, slow ooze maybe from esophagitis. 2. Gastroesophageal reflux disease. 3. Primary osteoarthritis. PLAN: Overall the patient is doing better. Care was discussed with the patient and her . Looking at probably further workup as an outpatient. CT scan of the abdomen did show chronic diverticulosis and a large hiatal hernia. Looking at probable discharge home tomorrow.
[2016-09-10] MEDS: clonazePAM 1 MG TAB PO PRN (06:51)
[2016-09-10 07:46] VITALS: RESP 16
[2016-09-10] MEDS: ISOSORBIDE MONONITRATE ER 60 MG TAB.ER.24H PO SCH (08:19)
[2016-09-10] MEDS: FLUoxetine HCL 20 MG CAP PO SCH (08:19)
[2016-09-10] MEDS: FAMOTIDINE 20 MG TAB PO SCH (08:19)
[2016-09-10 10:47] LABS: Anisocytosis Slight; Basophils % (A) 0 %; CH 26.2; CHCM 29.2; Eosinophils # (A) 0.1 k/uL (0-0.7); Eosinophils % (A) 2 %; HCT 28.6 % (34.0-46.0); HDW 4.79; HGB 8.5 gm/dL (11.4-16.0); Hypochromasia Marked; Luc # (Auto) 0.16; Luc % (Auto) 2; Lymphocytes # (A) 0.8 k/uL (1.0-4.8); Lymphocytes % (A) 10 %; MCH 26.8 pg (25.0-35.0); MCHC 29.8 g/dL (31.0-37.0); Mean Platelet Volume 7.7; Monocytes # (A) 0.5 k/uL (0-1.0); Monocytes % (A) 6 %; Neutrophils % (A) 79 %; Poikilocytosis Marked; RBC 3.18 m/uL (3.80-5.40); RDW 16.9 % (11.5-15.5); WBC 7.6 k/uL (3.8-10.6); WBC (Perox) 8.27
[2016-09-10 11:28] LABS: Anion Gap 10 mmol/L; Blood Urea Nitrogen 7 mg/dL (7-17); Calcium 8.6 mg/dL (8.4-10.2); Carbon Dioxide 25 mmol/L (22-30); Chloride 103 mmol/L (98-107); Glucose 140 mg/dL (74-99); Non-African American GFR(MDRD) >60 (>60 ml/min/1.73 sqM); Potassium 3.7 mmol/L (3.5-5.1); Sodium 138 mmol/L (137-145)
[2016-09-10] MEDS: SODIUM FERRIC GLUCONAT-SUCROSE 125 MG in SODIUM CHLORIDE 0.9% 100 ML IVPB SCH (15:07)
[2016-09-10 15:32] VITALS: BP 159/70; PULSE 87; TEMP 98.8
--- NOTE | 2016-09-10 20:51 | DS ---
DATE OF ADMISSION: 09/07/2016 DATE OF DISCHARGE: 09/10/2016 FINAL DIAGNOSES: 1. Acute gastrointestinal bleed, probably from upper gastrointestinal. 2. Gastroesophageal reflux disease. 3. Primary osteoarthrosis of multiple joints, bilateral. 4. Obesity; body mass index of 33.8. 5. Hiatal hernia. 6. Distal esophagitis. 7. Colonic diverticulosis. HOSPITAL COURSE: This is a patient with long-standing history of anemia. Presented with hemoglobin of 5.7. Patient did get 2 units of blood. Hemoglobin ( ) prior to discharge was 8.5. EGD did show some esophagitis, hiatal hernia. Patient told not to take NSAIDs anymore. Patient also seen by Dr. Bui from oncology and given some iron. Today patient is more stable, up and about. Will follow up with Dr. Bui and Dr. Steel as an outpatient. Care was discussed in detail with the patient's at bedside. On examination, lungs are clear. CARDIOVASCULAR: First and second sounds normal. DISCHARGE MEDICATIONS: 1. Vitamin C 500 mg a day. 2. Vitamin D3 5000 units p.o. daily. 3. Prozac 20 mg p.o. daily. 4. Iron 325 p.o. daily. 5. Flonase one spray each nostril daily p.r.n. 6. Imdur ER 60 mg p.o. daily. 7. Multivitamin 1 tablet p.o. daily. 8. Prilosec 20 mg p.o. b.i.d. 9. Clonazepam 2 mg p.o. t.i.d. p.r.n. Follow-up with Dr. Vizcaino in one week, Dr. Bui in [address] Steel in 2 weeks. Labs CBC in one week. Discharge planning more than 35 minutes.
== END 2016-09-10 16:16 | disposition home or self-care (01) | DRG 379 ==
LOC: EC 05:56 → SUPCPDRO 05:56 → 4MS4W 08:42
PROVIDERS: ADMIT Hospitalist; ATTEND Hospitalist
PROC: 30233N1 Transfusion of Nonautologous Red Blood Cells into Peripheral Vein, Percutaneous Approach (ICD-10-PCS; 2016-09-07)
PROC: 0DB58ZX Excision of Esophagus, Via Natural or Artificial Opening Endoscopic, Diagnostic (ICD-10-PCS; 2016-09-08)
PROC: 0DJD8ZZ Inspection of Lower Intestinal Tract, Via Natural or Artificial Opening Endoscopic (ICD-10-PCS; 2016-09-08)
PROC: 0DB98ZX Excision of Duodenum, Via Natural or Artificial Opening Endoscopic, Diagnostic (ICD-10-PCS; principal; 2016-09-08 14:40)
PROC: 0DB68ZX Excision of Stomach, Via Natural or Artificial Opening Endoscopic, Diagnostic (ICD-10-PCS; 2016-09-08 14:40)
DX: K92.2 Gastrointestinal hemorrhage, unspecified (principal); E66.01 Morbid (severe) obesity due to excess calories; D50.9 Iron deficiency anemia, unspecified; F41.0 Panic disorder [episodic paroxysmal anxiety]; K21.0 Gastro-esophageal reflux disease with esophagitis; K29.70 Gastritis, unspecified, without bleeding; K44.9 Diaphragmatic hernia without obstruction or gangrene; K57.30 Diverticulosis of large intestine without perforation or abscess without bleeding; M15.9 Polyosteoarthritis, unspecified; R01.1 Cardiac murmur, unspecified; F41.9 Anxiety disorder, unspecified; Z68.33 Body mass index [BMI] 33.0-33.9, adult; Z79.899 Other long term (current) drug therapy; Z87.891 Personal history of nicotine dependence; Z85.828 Personal history of other malignant neoplasm of skin; Z88.0 Allergy status to penicillin; Z91.041 Radiographic dye allergy status; Z82.49 Family history of ischemic heart disease and other diseases of the circulatory system
CPT/HCPCS: 36415; 36430; 43239; 45378; 71020; 74176; 80048; 80053; 82607; 82728; 82747; 83540; 83550; 85025; 85045; 86850; 86900; 86901; 86920; 88305; 88312; 88342; 93005; 99285